=== PATIENT | male | born 1980 | race Caucasian/White ===

== ENCOUNTER → 2020-01-11 | Outpatient (CLI) | payer SELFPAY ==
[~2020-01-11] MED LIST: NAPR500 PO; PENVK500 PO
== END | disposition home or self-care (01) ==
LOC: LAB 09:00 → LAB SHORT 09:00
DX: L08.9 Local infection of the skin and subcutaneous tissue, unspecified (principal)
CPT/HCPCS: 87070; 87075; 87077; 87147; 87186; 87205

== ENCOUNTER → 2022-03-24 | Outpatient (CLI) | payer OTHER ==
[2022-03-30 05:11] LABS: COTININE Negative ng/mL (Cutoff=300)
== END | disposition home or self-care (01) ==
LOC: LAB 07:21 → LAB SHORT 07:21 → EDSTATUS 03-16 09:20 → LAB FUT 03-16 09:20
PROVIDERS: Podiatrist Foot & Ankle Surgery
DX: Z09 Encounter for follow-up examination after completed treatment for conditions other than malignant neoplasm (principal); Z87.891 Personal history of nicotine dependence

== ENCOUNTER 2023-02-22 07:18 | Day surgery (SDC) | payer OTHER ==
[~2023-02-22] VITALS: Ht 177.8 cm; Wt 77.3 kg
[~2023-02-22 07:18] MED LIST changes: +GABA300 PO; +MELO7.5 PO; +TRAM50 PO
[2023-02-22 10:37] VITALS: BP 118/74
--- NOTE | 2023-02-22 11:21 | NUR ---
02/22/23 1121 eFrnando Jose IV REMOVED INTACT. SITE WNL. PT REPORTED 4/10 PAIN UPON DISCHARGE. HE DESCRIBED PAIN TOLERABLE; EXPRESSED READINESS TO GO HOME; AND SAID "I FEEL A LOT BETTER." PT DENIED NAUSEA UPON D/C. HE WAS ALERT, ORIENTED, CALM, AND TALKATIVE.
== END 2023-02-22 11:17 | disposition home or self-care (01) ==
LOC: ORSCSDS 07:18
PROVIDERS: Orthopaedic Surgery
PROC: 0PBC0ZZ Excision of Right Humeral Head, Open Approach (ICD-10-PCS; principal; 2023-02-22 09:45)
DX: M77.11 Lateral epicondylitis, right elbow (principal); G89.29 Other chronic pain; F32.A Depression, unspecified; F17.290 Nicotine dependence, other tobacco product, uncomplicated; Z79.899 Other long term (current) drug therapy
CPT/HCPCS: A9270; J0171; J0690; J1100; J1885; J2405; J2704; J2765; J2795; J3010; J7120